=== PATIENT | female | born 1985 | race Caucasian/White ===

== ENCOUNTER → 2023-11-23 | Outpatient (CLI) | payer MEDICARE, OTHER ==
--- NOTE | 2023-11-23 15:08 | US ---
EXAMINATION TYPE: US abdomen complete DATE OF EXAM: 11/23/2023 COMPARISON: NONE CLINICAL INDICATION: Female, 38 years old with history of D69.6 THROMBOCYTOPENIA; TECHNIQUE: Multiple sonographic images of the abdomen are obtained. FINDINGS: EXAM MEASUREMENTS: Liver Length: 14.3 cm CBD: 0.4 cm Spleen: 15.1 cm Right Kidney: 10.3 x 5.2 x 5.2 cm Left Kidney: 12.0 x 6.0 x 5.1 cm Pancreas: obscured by overlying midline bowel gas Liver: stent appears patent Gallbladder: surgically absent Evidence for sonographic Hagan's sign: no CBD: visualized portions wnl, limited by overlying midline bowel gas Spleen: enlarged, 0.7cm echogenic focus Right Kidney: hydronephrosis Left Kidney: wnl Upper IVC: wnl Abd Aorta: proximal portion obscured by overlying midline bowel gas, mid and distal portions wnl The intrahepatic portion of the IVC and proximal abdominal aorta are within normal limits. . Common bile duct is unremarkable. IMPRESSION: 1. Coarsened liver echotexture possibly indicating cirrhosis. 2. Patent portal systemic shunt. 3. Splenomegaly. 4. Cholecystectomy. 5. Limited evaluation of the pancreas due to bowel gas. 6. Mild to moderate hydronephrosis the right kidney
== END | disposition home or self-care (01) ==
LOC: RADUSWWP 08:26
PROVIDERS: ATTEND Internal Medicine
DX: N13.30 Unspecified hydronephrosis (principal); R16.2 Hepatomegaly with splenomegaly, not elsewhere classified; D69.6 Thrombocytopenia, unspecified; Z96.89 Presence of other specified functional implants; Z90.49 Acquired absence of other specified parts of digestive tract
CPT/HCPCS: 76700